=== PATIENT | male | born 1960 | race Caucasian/White ===

== ENCOUNTER 2017-04-08 20:09 | Inpatient (IN) | payer OTHER, MEDICAID ==
[~2017-04-08] VITALS: Ht 170.2 cm; Wt 95.5 kg
[~2017-04-08 20:09] MED LIST: AMLO-511 PO; OLAN5Z PO
[2017-04-08 21:06] LABS: BASOPHILS # (AUTO) 0.07 K/uL (0.00-0.20); BASOPHILS % (AUTO) 0.6 % (0.0-2.0); EOSINOPHILS # (AUTO) 0.11 K/uL (0.00-0.70); EOSINOPHILS % (AUTO) 0.96 % (1.0-6.0); HEMOGLOBIN 14.9 g/dL (13.5-17.5); LYMPHOCYTES # (AUTO) 2.7 K/uL (1.0-4.8); MEAN CORPUSCULAR HEMOGLOBIN 27.2 pg (26.0-34.0); MEAN CORPUSCULAR HGB CONC 32.4 G/dL (31.0-37.0); MEAN CORPUSCULAR VOLUME 84 fL (80-100); MONOCYTES # (AUTO) 0.8 K/uL (0.1-1.0); MONOCYTES % (AUTO) 7.3 % (2.0-9.0); NEUTROPHILS # (AUTO) 7.5 K/uL (1.8-7.7); NEUTROPHILS % (AUTO) 67.1 % (40.0-70.0); PLATELET COUNT (AUTO) 230 K/uL (150-450); RED BLOOD CELL COUNT(AUTO) 5.48 MIL/uL (4.50-5.90); RED CELL DISTRIBUTION WIDTH 16.8 % (11.5-14.5); WHITE BLOOD COUNT (AUTO) 11.1 K/uL (4.5-11.0)
[2017-04-08 21:15] LABS: CALCIUM, TOTAL 9.6 mg/dL (8.8-10.5); CREATININE 1.56 mg/dL (0.60-1.30)
[2017-04-08 21:17] LABS: BILIRUBIN,TOTAL 0.2 mg/dL (0.1-1.0); TOTAL PROTEIN, SERUM 7.7 g/dL (6.4-8.2)
[2017-04-08] MEDS ORDERED: LORazepam 2 MG TABLET PO ONE (22:30)
[2017-04-08] MEDS ORDERED: HALOPERIDOL 5 MG TABLET PO PRN (22:45)
[2017-04-08] MEDS ORDERED: ZOLPIDEM TARTRATE 10 MG TABLET PO PRN (22:45)
[2017-04-08 23:15] LABS: CHOL/HDL RATIO 5.1 (4.2-7.3)
[2017-04-08 23:38] LABS: APPEARANCE,URINE CLEAR (CLEAR); GLUCOSE, URINE (UA) NEGATIVE (NEGATIVE); KETONES,URINE NEGATIVE (NEGATIVE); LEUKOCYTE ESTERASE ,URINE NEGATIVE (NEGATIVE); OCCULT BLOOD,URINE NEGATIVE (NEGATIVE); PH,URINE 5.5 (5.0-8.0); PROTEIN,URINE NEGATIVE (NEGATIVE)
[2017-04-08 23:39] LABS: ADD UA MICROSCOPIC NO
[2017-04-09] MEDS ORDERED: PNEUMOCOCCAL VACCINE POLYVALENT 0.5 ML VIAL [PPSV23] IM ONE (03:45)
[2017-04-09 08:41] VITALS: BP 133/83
[2017-04-09] MEDS ORDERED: ACETAMINOPHEN 325 MG TABLET PO PRN (15:15)
[2017-04-09 16:00] VITALS: BP 140/87
[2017-04-09] MEDS: OLANZapine 5 MG RAPDIS TABLET PO SCH (20:07)
[2017-04-09] MEDS: LORazepam 2 MG TABLET PO PRN (20:07)
[2017-04-09] MEDS: IBUPROFEN 600 MG TABLET PO PRN (20:08)
[2017-04-10 08:00] VITALS: BP 143/83
[2017-04-10 14:30] VITALS: BP 140/82
[2017-04-10] MEDS: LORazepam 2 MG TABLET PO PRN (14:35)
[2017-04-10] MEDS: IBUPROFEN 600 MG TABLET PO PRN (14:36)
[2017-04-10 16:00] VITALS: BP 131/67
[2017-04-10] MEDS: OLANZapine 5 MG RAPDIS TABLET PO SCH (20:41)
[2017-04-11 06:10] VITALS: BP 121/92
[2017-04-11] MEDS ORDERED: AmLODIPine BESYLATE 5 MG TABLET PO SCH (09:00)
[2017-04-11] MEDS: IBUPROFEN 600 MG TABLET PO PRN (09:35)
[2017-04-11] MEDS: LORazepam 2 MG TABLET PO PRN (09:35)
== END 2017-04-11 18:40 | disposition home or self-care (01) | DRG 885 ==
LOC: EMS 20:24 → B3A 23:35
DX: F25.1 Schizoaffective disorder, depressive type (principal); S22.39XA Fracture of one rib, unspecified side, initial encounter for closed fracture; D72.829 Elevated white blood cell count, unspecified; E78.5 Hyperlipidemia, unspecified; F10.129 Alcohol abuse with intoxication, unspecified; F12.10 Cannabis abuse, uncomplicated; F17.210 Nicotine dependence, cigarettes, uncomplicated; I10 Essential (primary) hypertension; N28.9 Disorder of kidney and ureter, unspecified; Z78.1 Physical restraint status; Z91.19 Patient's noncompliance with other medical treatment and regimen; G89.29 Other chronic pain; R56.9 Unspecified convulsions; Y90.7 Blood alcohol level of 200-239 mg/100 ml; M54.9 Dorsalgia, unspecified; X58.XXXA Exposure to other specified factors, initial encounter; Y93.89 Activity, other specified; Y92.89 Other specified places as the place of occurrence of the external cause; Y99.8 Other external cause status; Z88.8 Allergy status to other drugs, medicaments and biological substances; Z79.899 Other long term (current) drug therapy; Z71.41 Alcohol abuse counseling and surveillance of alcoholic; Z71.51 Drug abuse counseling and surveillance of drug abuser; Z28.21 Immunization not carried out because of patient refusal
CPT/HCPCS: 71111; 90471; 99291; G0480